=== PATIENT | male | born 1970 | race Caucasian/White ===

== ENCOUNTER 2019-11-24 23:43 | Emergency (ER) | payer MEDICAID ==
[~2019-11-24] VITALS: Ht 190.5 cm; Wt 90.9 kg
[~2019-11-24 23:43] MED LIST: BECL8.7A3 IH; CLA10T PO; DIVA-81 PO; LEVA15HF4 IH; NORCO10T PO; SUMA25TA35 PO
[2019-11-24] MEDS ORDERED: haloperidol lactate 5mg/ml inj IM ONE (23:50)
[2019-11-24] MEDS ORDERED: diphenhydrAMINE 50 mg/ml inj IM ONE (23:50)
[2019-11-24] MEDS ORDERED: LORazepam 2 mg/ml vial IM ONE (23:50)
[2019-11-25] MEDS ORDERED: propofol 10mg/ml 20ml vial IV ONE (01:10)
--- NOTE | 2019-11-25 01:12 | NUR ---
Pt was taken to CT for emergent CT scans after he calmed down. Pt was unable to follow directions and hold still on the CT table. After several attempts, CT attempt was called off and Md Love notified. gave verbal order to prepare for mod sedation at CT scan.
--- NOTE | 2019-11-25 01:57 | NUR ---
Pt returned to room in ER after CT scan. Pt tolerated procedure well. He is currently awake but drowsy. He is still resistant to commands and following directions.
[2019-11-25] MEDS ORDERED: clindamycin phosphate inj 600 MG in normal saline 50ml IV soln 50 ML IV ONE (03:00)
[2019-11-25] MEDS ORDERED: clindamycin 600mg/D5W 50ml 50 ML IV ONE (03:15)
--- NOTE | 2019-11-25 07:02 | NUR ---
Contacted Lazara ERNANDEZ dispatcher, to determine pt disposition once medically cleared and to establish if a case # was assigned. ABHINAV guerrero will return call with update as status currently not known by AWAIS.
[2019-11-25 08:33] VITALS: BP 118/67
--- NOTE | 2019-11-25 09:17 | NUR ---
Msg left castillo/ Joel ([phone]) seeking pt transport home.
== END 2019-11-25 09:30 | disposition home or self-care (01) ==
LOC: ER 23:43
DX: S02.831A Fracture of medial orbital wall, right side, initial encounter for closed fracture (principal); S80.212A Abrasion, left knee, initial encounter; S80.211A Abrasion, right knee, initial encounter; I10 Essential (primary) hypertension; J44.9 Chronic obstructive pulmonary disease, unspecified; G89.29 Other chronic pain; F17.200 Nicotine dependence, unspecified, uncomplicated; Z86.69 Personal history of other diseases of the nervous system and sense organs; Z72.89 Other problems related to lifestyle; Z88.0 Allergy status to penicillin; Z88.6 Allergy status to analgesic agent; Z88.8 Allergy status to other drugs, medicaments and biological substances; Z79.899 Other long term (current) drug therapy; W26.0XXA Contact with knife, initial encounter; Y93.89 Activity, other specified; Y92.89 Other specified places as the place of occurrence of the external cause; Y99.8 Other external cause status
CPT/HCPCS: 70450; 70486; 71250; 72125; 74176; 96365; 96372; 99285; J1200; J1630; J2060; 96375; J3490